=== PATIENT | male | born 1985 | race African-American/Black ===

== ENCOUNTER 2017-03-14 11:16 | Emergency (ER) | payer SELFPAY ==
[~2017-03-14] VITALS: Ht 200.7 cm; Wt 120.0 kg
[2017-03-14 11:18] VITALS: BP 155/67; PULSE 68; RESP 15; TEMP 98.2; O2SAT 99
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
[2017-03-14] MEDS ORDERED: IBUP800T23 PO (11:50)
[2017-03-14] MEDS ORDERED: CYCL5TAB PO (11:50)
[2017-03-14] MEDS ORDERED: KETOROLAC TROMETHAMINE 60 MG/2 ML (IM) VIAL IM ONE (12:00)
[2017-03-14] MEDS ORDERED: ORPHENADRINE INJ 60 MG/2 ML AMP IM ONE (12:00)
== END 2017-03-14 12:26 | disposition home or self-care (01) ==
LOC: NEPK 11:16
DX: M54.5 Low back pain (principal); G89.29 Other chronic pain; Z72.0 Tobacco use; Z87.39 Personal history of other diseases of the musculoskeletal system and connective tissue
CPT/HCPCS: 96372; 99284; J1885; J2360